=== PATIENT | male | born 1960 | race Caucasian/White ===

== ENCOUNTER 2018-08-08 23:06 | Emergency (ER) | payer BC, OTHER ==
[~2018-08-08] VITALS: Ht 175.3 cm; Wt 85.0 kg
[~2018-08-08 23:06] MED LIST: METF500T PO
[2018-08-08 23:10] VITALS: BP 138/88
--- NOTE | 2018-08-08 23:18 | NUR ---
PT TAKEN TO BED 11
--- NOTE | 2018-08-08 23:27 | NUR ---
PT TO ED WITH C/O L FINGER PAIN X 3 DAYS. PT REPORTS POSSIBLE SPIDER BITE. REDNESS AND SWELLING NOTED TO L#5 FINGER. PT HAS LIMITED ROM OF FINGER. CMS INTACT. PT PLACED INTO BED, PENDING MD CASTILLO.
[2018-08-08] MEDS ORDERED: SULFAMETH/TRIMETH DS 800/160MG 1 TAB PO ONE (23:35)
[2018-08-08 23:43] VITALS: BP 138/88
--- NOTE | 2018-08-08 23:44 | NUR ---
Patient discharged with v/s stable. Written and verbal after care instructions given and explained. Patient alert, oriented and verbalized understanding of instructions. Ambulatory with steady gait. All questions addressed prior to discharge. ID band removed. Patient advised to follow up with PMD. Rx of BACTRIM, MOTRIN given. Patient educated on indication of medication including possible reaction and side effects. Opportunity to ask questions provided and answered.
== END 2018-08-08 23:44 | disposition home or self-care (01) ==
LOC: MED 23:06
DX: L03.011 Cellulitis of right finger (principal); E11.9 Type 2 diabetes mellitus without complications; Z79.84 Long term (current) use of oral hypoglycemic drugs
CPT/HCPCS: 73140; 82948; 99283

== ENCOUNTER 2019-01-20 03:50 | Emergency (ER) | payer BC, MEDICAID ==
[~2019-01-20] VITALS: Ht 175.3 cm; Wt 84.4 kg
[2019-01-20 03:59] VITALS: BP 112/75
--- NOTE | 2019-01-20 04:08 | NUR ---
PT AMBULATED TO ER BED 2
--- NOTE | 2019-01-20 05:03 | NUR ---
C/O LT GROIN MASS AND GETTING BIGGER X 1 WK. WAS SEEN BY URGENT CARE PROVIDER WITH DX. INGUINAL HERNIA. HAD APPOINTMENT WITH PMD IN 2 WKS. TODAY PAIN INCREASED. PMH;DM. PT AAO X4, GCS 15, ABLE TO SPEAK WITH FULL COMPLETE SENETENCES. AMBULATOR WITH STEADY GAIT. RESPIRATIONS EVEN AND UNLABORED, BL LUNG CLEAR. SKIN WARM/PINK/DRY, +PMSC. ABDOMEN SOFT, NON DISTENDED, ACTIVE BOWEL SOOUND X 4. NOTED RT INGUINAL HERNIA, PAIN TO TOUCH. VSS, NO ACUTE DISTRESS AT THIS TIME. MADE AWARE OF PT STATUS. WILL CONTINUE TO MONITOR
--- NOTE | 2019-01-20 07:27 | NUR ---
Pt report given to PATTI BLACKMON. Transfer of care at this time.
--- NOTE | 2019-01-20 07:28 | NUR ---
RECEIVED REPORT FROM PATTI WILSON. PT IN STABLE CONDITION.
[2019-01-20 08:11] LABS: ANION GAP 12.4 (8-16); CARBON DIOXIDE 27.7 mmol/L (21-32); CREATININE 0.8 mg/dL (0.7-1.3); POTASSIUM 4.1 mmol/L (3.5-5.1)
[2019-01-20 08:13] LABS: BASOPHILS # (AUTO) 0.1 K/uL (0.00-0.22); BASOPHILS % (AUTO) 0.8 % (0.0-2.0); EOSINOPHILS % (AUTO) 0.6 % (0.0-4.0); HEMATOCRIT 43.7 % (36-52); LYMPHOCYTES # (AUTO) 1.4 K/uL (2.0-11.5); LYMPHOCYTES % (AUTO) 20.4 % (20.5-51.1); MEAN CORPUSCULAR HEMOGLOBIN 30 pg (27-31); MEAN CORPUSCULAR HGB CONC 34 g/dL (33-37); MEAN CORPUSCULAR VOLUME 87.4 fL (80-94); MONOCYTES # (AUTO) 0.7 K/uL (0.8-1.0); MONOCYTES % (AUTO) 10.7 % (1.7-9.3); NEUTROPHILS # (AUTO) 4.6 K/uL (1.8-7.7); NEUTROPHILS % (AUTO) 67.5 % (42.2-75.2); PLATELET COUNT (AUTO) 248 K/uL (140-450); WHITE BLOOD COUNT (AUTO) 6.8 K/uL (4.8-10.8)
[2019-01-20 08:18] LABS: ALBUMIN 3.1 g/dL (3.4-5.0); TOTAL BILIRUBIN 0.7 mg/dL (0.0-1.0)
--- NOTE | 2019-01-20 08:45 | NUR ---
PT TAKEN FOR CT SCAN.
--- NOTE | 2019-01-20 09:03 | NUR ---
PT BACK FROM CT SCAN.
--- NOTE | 2019-01-20 10:07 | NUR ---
PATIENT WANTS TO EAT. SIGNIFICANT OTHER BROUGHT HIM WANT, PT WANTS TO KNOW IF IT IS OKAY TO EAT. DR. DONNELLY STATES OK FOR PT TO EAT, NOTIFIED PT.
--- NOTE | 2019-01-20 11:20 | NUR ---
Patient discharged with v/s stable. Written and verbal after care instructions given and explained. Patient alert, oriented and verbalized understanding of instructions. Ambulatory with steady gait. All questions addressed prior to discharge. ID band removed. Patient advised to follow up with PMD. Rx of [place] and [place] given. Patient educated on indication of medication including possible reaction and side effects. Opportunity to ask questions provided and answered. Addendum: 01/20/19 at 1122 by ANNETTA 20G IV ON RIGHT AC (FROM MULTIPLE LAUNCH ROCKET SYSTEM CREWMEMBER RN) REMOVED. CANNULA INTACT.
[2019-01-20 11:21] VITALS: BP 129/90
== END 2019-01-20 11:20 | disposition home or self-care (01) ==
LOC: MED 03:50
DX: R19.00 Intra-abdominal and pelvic swelling, mass and lump, unspecified site (principal); E11.9 Type 2 diabetes mellitus without complications; Z79.84 Long term (current) use of oral hypoglycemic drugs
CPT/HCPCS: 36415; 74177; 80053; 83690; 85025; 99284; Q9967

== ENCOUNTER 2019-02-02 11:48 | Inpatient (IN) | payer MEDICAID, OTHER ==
[~2019-02-02] VITALS: Ht 175.3 cm; Wt 84.4 kg
[2019-02-02 11:55] VITALS: BP 125/72
--- NOTE | 2019-02-02 11:59 | NUR ---
PATIENT AMBULATED TO BED 4 AT THIS TIME.
--- NOTE | 2019-02-02 12:10 | NUR ---
PT C/O PALPABLE PAINFUL MASS TO RT SIDE OF GROIN X 1 MONTH. PT STATES THE DULL PAIN IS WORSE WITH MOVEMENT. SEEN BY PMD -- DX WITH POSSIBLE HERNIA. [id number] FIRM MASS PALPATED ON PT'S RIGHT GROIN AREA. PATIENT STATES PAIN OF 8/10 AT THIS TIME; VSS; PATIENT POSITIONED FOR COMFORT; HOB ELEVATED; BEDRAILS UP X1; BED DOWN. ER MD MADE AWARE OF PT STATUS.
[2019-02-02] MEDS ORDERED: NACL 0.9% 1,000 ML IV SCH (12:27)
[2019-02-02] MEDS ORDERED: KETOROLAC 30 MG/ML VIAL IVP ONE (12:30)
--- NOTE | 2019-02-02 12:45 | NUR ---
PARTS BACK COUNTER MAN IS AT BEDSIDE.
--- NOTE | 2019-02-02 12:53 | NUR ---
U/S TECH IS AT BEDSIDE.
[2019-02-02 13:01] LABS: APPEARANCE,URINE CLEAR (CLEAR); BILIRUBIN,URINE NEGATIVE (NEGATIVE); BLOOD, URINE NEGATIVE (NEGATIVE); COLOR,URINE YELLOW (YELLOW); LEUKOCYTE ESTERASE ,URINE NEGATIVE (NEGATIVE); NITRITE, URINE NEGATIVE (NEGATIVE); UGLUCOSE 3+ (NEGATIVE)
[2019-02-02 13:02] LABS: BASOPHILS # (AUTO) 0.1 K/uL (0.00-0.22); BASOPHILS % (AUTO) 0.7 % (0.0-2.0); EOSINOPHILS % (AUTO) 0.2 % (0.0-4.0); HEMATOCRIT 39.6 % (36-52); HEMOGLOBIN 13.4 g/dL (12.0-18.0); LYMPHOCYTES # (AUTO) 1.6 K/uL (2.0-11.5); LYMPHOCYTES % (AUTO) 15.7 % (20.5-51.1); MEAN CORPUSCULAR HEMOGLOBIN 30 pg (27-31); MEAN CORPUSCULAR HGB CONC 34 g/dL (33-37); MEAN CORPUSCULAR VOLUME 88.6 fL (80-94); MONOCYTES % (AUTO) 9.8 % (1.7-9.3); NEUTROPHILS # (AUTO) 7.4 K/uL (1.8-7.7); NEUTROPHILS % (AUTO) 73.6 % (42.2-75.2); PLATELET COUNT (AUTO) 300 K/uL (140-450); RED BLOOD CELL COUNT(AUTO) 4.47 MIL/uL (4.20-6.10); RED CELL DISTRIBUTION WIDTH 13.3 % (11.6-13.7); WHITE BLOOD COUNT (AUTO) 10.1 K/uL (4.8-10.8)
[2019-02-02 13:10] LABS: ANION GAP 10.9 (8-16); CARBON DIOXIDE 28.5 mmol/L (21-32); POTASSIUM 4.4 mmol/L (3.5-5.1)
[2019-02-02 13:14] LABS: RBC,URINE 0 /HPF (0-5)
[2019-02-02 13:14] LABS: PROTHROMBIN TIME 9.7 secs (10.8-13.4)
[2019-02-02 13:15] LABS: WBC,URINE 0 /HPF (0-5)
[2019-02-02 13:16] LABS: ALBUMIN 2.8 g/dL (3.4-5.0); TOTAL BILIRUBIN 0.6 mg/dL (0.0-1.0)
--- NOTE | 2019-02-02 13:40 | NUR ---
PT IS RESTING IN BED WITH EYES CLOSED.
[2019-02-02] MEDS ORDERED: VANCOMYCIN 1,000 MG in DEXTROSE 5% 250 ML IV ONE (14:30)
--- NOTE | 2019-02-02 14:30 | NUR ---
PT IS SLEEPING IN BED WITH VSS.
[2019-02-02] MEDS ORDERED: VANCOMYCIN 1,000 MG VIAL ONE (14:54)
[2019-02-02] MEDS: DEXT 5% / NACL 0.45% 1,000 ML IV SCH (15:15)
[2019-02-02] MEDS ORDERED: BISACODYL 10 MG SUPP RC PRN (15:20)
[2019-02-02] MEDS ORDERED: diphenhydrAMINE 50 MG/ML VIAL IVP PRN (15:20)
[2019-02-02] MEDS ORDERED: MAGNESIUM OXIDE 400 MG TAB PO PRN (15:20)
[2019-02-02] MEDS ORDERED: HYDROcodone/APAP 5/325 MG 1 TAB TAB PO PRN ×2 (15:20)
[2019-02-02] MEDS ORDERED: ACETAMINOPHEN 650 MG SUPP RC PRN (15:20)
[2019-02-02] MEDS ORDERED: ZOLPIDEM 5 MG TAB PO PRN (15:20)
[2019-02-02] MEDS ORDERED: ALUMINUM HYD/MAG/SIMETHICONE 30 ML UDC PO PRN (15:20)
[2019-02-02] MEDS ORDERED: POTASSIUM CHLORIDE 10 MEQ TABER PO PRN (15:20)
[2019-02-02] MEDS ORDERED: guaiFENesin DM 200/20 MG-10 ML 10 ML UDC PO PRN (15:20)
[2019-02-02] MEDS ORDERED: MORPHINE SULFATE 2 MG/ML SYR IVP PRN (15:20)
[2019-02-02] MEDS ORDERED: cloNIDine 0.1 MG TAB PO PRN (15:20)
[2019-02-02] MEDS ORDERED: ONDANSETRON 4 MG/2 ML VIAL IVP PRN (15:20)
[2019-02-02] MEDS ORDERED: MAG SULF 2000 MG/WATER PREMIX 50 ML IV PRN (15:20)
[2019-02-02] MEDS ORDERED: SODIUM PHOSPHATE 118 ML ENEM RC PRN (15:20)
[2019-02-02] MEDS ORDERED: DOCUSATE SODIUM 250 MG GELCAP PO PRN (15:20)
[2019-02-02] MEDS ORDERED: DEXTROSE 50% 50 ML SYR IVP PRN (15:25)
--- NOTE | 2019-02-02 15:41 | NUR ---
PT IS SLEEPING IN BED WITH VSS.
[2019-02-02] MEDS: BLOOD GLUCOSE MONITORING 1 DEV DEV FS SCH ×2 (16:30→21:46)
--- NOTE | 2019-02-02 16:50 | NUR ---
Patient will be admitted to care of possible incarcerated hernia. Admited to med-surg. Will go to room 111A. Belongings list completed. Report to PATTI Cotter.
--- NOTE | 2019-02-02 16:50 | NUR ---
PT ARRIVED ON THE UNIT. PT APPEARS STABLE AND IN NO APPARENT DISTRESS. PT VITALS ARE WITHIN NORMAL LIMITS 102/64 99% SPO2 ON ROOM AIR. HEART RATE 75 RESPIRATIONS 18 IV SITE RIGHT AC 20G INFUSING WITH NO SIGNS OF INFILTRATION OR INFLAMMATION.
[2019-02-02] MEDS: INSULIN LISPRO SLIDING SCALE 100 UNITS/ML VIAL SUBQ PRN ×2 (17:47→21:47)
--- NOTE | 2019-02-02 17:48 | NUR ---
FINGERSTICK GLUCOSE 237 ADMINISTERED 4 UNITS HUMALOG. PER SLIDING SCALE
--- NOTE | 2019-02-02 19:30 | NUR ---
ENDORSED PT TO PM RN PT APPEARS STABLE AND IN NO APPARENT DISTRESS. IVF INFUSING IV SITE PATENT WITH NO SIGNS OF INFILTRATION OR INFLAMMATION. ALL SAFETY MEASURES ARE IN PLACE
--- NOTE | 2019-02-02 19:31 | NUR ---
Received endorsement from AM shift RN; patient A/Ox4, able to make needs known, ambulatory. Patient resting comfortably, introduced self, updated board. No SOB or distress noted, on room air. IV site noted on right antecubital, 20 gauge, running IVF, asymptomatic. Skin intact. Bed in the lowest position, call light within reach. Initial assessment done. Will continue to monitor.
--- NOTE | 2019-02-02 21:40 | NUR ---
Due meds given, tolerated well.
--- NOTE | 2019-02-02 23:41 | NUR ---
Vitals taken, no distress noted.
[2019-02-03] VITALS: BP 146/88
[2019-02-03] MEDS: DEXT 5% / NACL 0.45% 1,000 ML IV SCH ×3 (00:29→21:15)
--- NOTE | 2019-02-03 02:10 | NUR ---
Checks made; patient resting comfortably, visible chest rise and fall noted.
--- NOTE | 2019-02-03 04:35 | NUR ---
Rounds done; patient asleep, eyes closed, visible chest rise and fall noted.
--- NOTE | 2019-02-03 05:42 | NUR ---
Patient signed consent for Percutaneous needle biopsy.
[2019-02-03] MEDS: BLOOD GLUCOSE MONITORING 1 DEV DEV FS SCH ×4 (05:46→21:22)
[2019-02-03] MEDS: INSULIN LISPRO SLIDING SCALE 100 UNITS/ML VIAL SUBQ PRN ×4 (05:46→21:26)
--- NOTE | 2019-02-03 06:02 | NUR ---
Vitals stable, due meds given. Will endorse to AM shift RN for continuity of care.
--- NOTE | 2019-02-03 07:15 | NUR ---
RECEIVED REPORT FROM UI LEAD DEVELOPER NURSE. PATIENT IS ASLEEP, RESPIRATION EVEN AND UNLABORED. NO ACUTE DISTRESS NOTED.
[2019-02-03 08:00] VITALS: BP 139/90
--- NOTE | 2019-02-03 08:28 | NUR ---
PATIENT HAS BEEN SCREENED AND CATEGORIZED MODERATE NUTRITION RISK. PATIENT WILL BE SEEN WITHIN 3-5 DAYS OF ADMISSION. 02/05/19-02/07/[address]
--- NOTE | 2019-02-03 09:54 | NUR ---
PER RADIOLOGY US/CT GUIDED BIOPSY WONT BE DONE UNTIL TUESDAY UNLESS ORDERED STAT AND APPROVED BY RESEARCH PHYSICIAN, DR SHERMAN CALLED TO CLARIFY ORDER, KEEP IT ROUTINE, OK TO WAIT UNTIL TUESDAY. PT OK TO EAT FOR NOW PER DR SHERMAN.
--- NOTE | 2019-02-03 10:40 | NUR ---
PT NOW SLEEPING QUIETLY, APPEARS IN NO ACUTE DISTRESS.
--- NOTE | 2019-02-03 12:45 | NUR ---
DR LOCKETT AT BEDSIDE
--- NOTE | 2019-02-03 13:02 | NUR ---
IV CONTRAST CONSENT SIGNED BY PT.
--- NOTE | 2019-02-03 13:25 | NUR ---
PT SLEEPING QUIETLY, APPEARS IN NO ACUTE DISTRESS, IVF INFUSING WELL, SITE WNL.
--- NOTE | 2019-02-03 14:44 | NUR ---
PT TAKEN TO CT IN WHEELCHAIR AT THIS TIME.
[2019-02-03 16:00] VITALS: BP 118/80
--- NOTE | 2019-02-03 19:20 | NUR ---
REPORT GIVEN TO SQL DBA NURSE. PATIENT IS IN STABLE CONDITION.
--- NOTE | 2019-02-03 19:22 | NUR ---
RECEIVED PT IN STABLE CONDITION FROM AM NURSE. AWAKE,ALERT AND ORIENTED X4. MED SURG. WITH NO C/O ANY DISCOMFORT OR PAIN NOTED. HAS IVF INFUSING WELL ON THE RT AC G#20. CLEAR AND PATENT. PLAN OF CARE DISCUSSED AND VERBALIZED UNDERSTANDING. BED ON LOWEST POSITION. CALL LIGHT AND URINAL WITHIN EASY REACH. WILL CONTINUE TO MONITOR.
--- NOTE | 2019-02-03 21:00 | NUR ---
MADE ROUNDS. PT ASLEEP. NO S/S. OF ANY DISCOMFORT/PAIN. WILL CONTINUE TO MONITOR.
[2019-02-04 00:55] VITALS: BP 117/77
--- NOTE | 2019-02-04 01:00 | NUR ---
PT AWAKE. WATER PROVIDED. NO C/O ANY PAIN NOTED. WILL CONTINUE TO MONITOR.
--- NOTE | 2019-02-04 03:00 | NUR ---
PT IS ASLEEP. NO S/SOF ANY DISCOMFORT NOR PAIN NOTED.
[2019-02-04] MEDS: DEXT 5% / NACL 0.45% 1,000 ML IV SCH ×3 (04:30→17:15)
[2019-02-04] MEDS: BLOOD GLUCOSE MONITORING 1 DEV DEV FS SCH ×4 (05:45→21:10)
[2019-02-04] MEDS: INSULIN LISPRO SLIDING SCALE 100 UNITS/ML VIAL SUBQ PRN ×4 (05:47→21:17)
--- NOTE | 2019-02-04 05:47 | NUR ---
BLOOD SUGAR THIS AM WAS CHECKED RESULT 240. INSULIN COVERAGE GIVEN SUBQ.
--- NOTE | 2019-02-04 07:25 | NUR ---
ENDORSED PT IN STABLE CONDITION TO AM NURSE.
--- NOTE | 2019-02-04 07:28 | NUR ---
REPORT RECEIVED FROM NEW ACCOUNT INTERVIEWER NURSE, PT SLEEPING QUIETLY, NO C/O PAIN, RESP EVEN UNLABORED, POC REVIEWED, NO IMMEDIATE NEEDS AT THIS THIS TIME, WILL CONTINUE TO MONITOR
[2019-02-04 08:00] VITALS: BP 118/82
--- NOTE | 2019-02-04 09:20 | NUR ---
PT UP TO TAKE A SHOWER, IV SITE WRAPPED, PT UP AMBULATES WITH STEADY GAIT.
--- NOTE | 2019-02-04 10:33 | NUR ---
PT SITTING UP WATCHING TV, TV VOLUME CONTROL FIXED, APPEARS IN NO ACUTE DISTRESS.
--- NOTE | 2019-02-04 12:05 | NUR ---
SHELL MOLDER AT BEDSIDE DRAWING BLOOD
[2019-02-04 12:15] LABS: HEMATOCRIT 38.1 % (36-52); HEMOGLOBIN 12.9 g/dL (12.0-18.0); MEAN CORPUSCULAR HEMOGLOBIN 30 pg (27-31); MEAN CORPUSCULAR HGB CONC 34 g/dL (33-37); MEAN CORPUSCULAR VOLUME 87.4 fL (80-94); PLATELET COUNT (AUTO) 293 K/uL (140-450); RED BLOOD CELL COUNT(AUTO) 4.36 MIL/uL (4.20-6.10); RED CELL DISTRIBUTION WIDTH 12.9 % (11.6-13.7); WHITE BLOOD COUNT (AUTO) 7.7 K/uL (4.8-10.8)
[2019-02-04 12:38] LABS: ANION GAP 10.4 (8-16); CARBON DIOXIDE 28.4 mmol/L (21-32); CREATININE 0.9 mg/dL (0.7-1.3); POTASSIUM 3.8 mmol/L (3.5-5.1)
[2019-02-04 12:46] LABS: PHOSPHORUS 3.6 mg/dL (2.5-4.9)
[2019-02-04 12:59] LABS: BASOPHILS % (MANUAL) 0 % (0-2); EOSINOPHILS % (MANUAL) 0 % (0-4); LYMPHOCYTES % (MANUAL) 15 % (20-46); MONOCYTES % (MANUAL) 11 % (5-12)
[2019-02-04 16:00] VITALS: BP 120/79
--- NOTE | 2019-02-04 17:06 | NUR ---
PT'S SISTER SELVIN ALLRED AT BEDSIDE, , NEXT OF KIN INFORMATION UPDATED WITH ADMITTING, PT ALSO REQUESTING INFORMATION REGARDING PATIENT PORTAL ACCESS, ADMITTING ASKED TO GIVE INFORMATION TO PATIENT.
--- NOTE | 2019-02-04 17:08 | NUR ---
TEMP 98.6 AFTER TYLENOL
[2019-02-04] MEDS: LORazepam 2 MG/ML VIAL IVP PRN (17:22)
--- NOTE | 2019-02-04 17:35 | NUR ---
PT C/O FEELING ANXIOUS AND RESTLESS, PT AND SISTER STATES HE IS NOT USED TO SITTING IN ONE PLACE FOR LONG TIME, PRN ATIVAN GIVEN AT THIS TIME. Addendum: 02/04/19 at 1738 by Libra Mantilla RN PT WORRIED ABOUT NEEDLE BIOPSY TOMORROW
--- NOTE | 2019-02-04 18:04 | NUR ---
PT STATES HE FEELS MORE CALM NOW, SITTING UP EATING DINNER AT THIS TIME
--- NOTE | 2019-02-04 19:28 | NUR ---
REPORT GIVEN TO AGRICULTURAL RESEARCHER NURSE, PT SLEEPING COMFORTABLY IN NO ACUTE DISTRESS.
--- NOTE | 2019-02-04 19:28 | NUR ---
RECIEVED PT . AAOX4 , RESTING COMFORTABLY ON BED , WITH BERABLE PAIN HE SAID AT THIS TIME . IV SITE INTACT AND PATENT. ON SAFETY PRECAUTION PROTOCOL . PLAN OF CARE DISCUSSED AND VERBALIZE UNDERSTANDING . CALL SANDRA GARCIA IN REACH , WILL CONT. TO MONITOR.
--- NOTE | 2019-02-04 22:00 | NUR ---
CLARISA ARANDA , NO COMPLAIN MADE AT THIS TIME. Addendum: 02/05/19 at 0156 by Sadie Pham RN IVF FOUND DISCONNECTED , ON IV PUMP STANDBY MODE ,- RE CONNECT IVF.
[2019-02-05] VITALS: BP 124/72
--- NOTE | 2019-02-05 01:00 | NUR ---
MADE ROUNDS , PT. SAID " DO U GIVE ME THE MEDICINE WHICH GIVING EVERY FOUR HOURS?"- I ASK PT ARE U IN [place] HE SAID NO , PT APPERS CALM ON BED , NO SIGNS OF AGITATION NOTED.WILL CONT. TO MONITOR.
[2019-02-05] MEDS: LORazepam 2 MG/ML VIAL IVP PRN ×3 (01:41→14:25)
[2019-02-05] MEDS: ACETAMINOPHEN 325 MG TAB PO PRN ×2 (01:46→17:53)
--- NOTE | 2019-02-05 02:20 | NUR ---
BRING SANDWICH FOR THE PT - BUT PT SLEEPING SOUNDLY - ATIVAN TIV JUST GIVEN.
[2019-02-05] MEDS: DEXT 5% / NACL 0.45% 1,000 ML IV SCH ×2 (03:15→13:15)
[2019-02-05] MEDS: BLOOD GLUCOSE MONITORING 1 DEV DEV FS SCH ×4 (06:01→21:04)
[2019-02-05] MEDS: INSULIN LISPRO SLIDING SCALE 100 UNITS/ML VIAL SUBQ PRN ×3 (06:08→21:17)
--- NOTE | 2019-02-05 07:15 | NUR ---
RECEIVED REPORT FROM INSPECTOR HOT FORGINGS NURSE JAMSHID FOR CONTINUITY OF CARE. PT IN STABLE CONDITION. RESPIRATIONS EVEN AND UNLABORED. IV INTACT AND PATENT. SAFETY MEASURES IN PLACE. BED IN LOW POSITION. CALL LIGHT AT BEDSIDE. WILL CONTINUE TO MONITOR.
[2019-02-05 07:44] LABS: HEMATOCRIT 39.2 % (36-52); HEMOGLOBIN 13.5 g/dL (12.0-18.0); MEAN CORPUSCULAR HEMOGLOBIN 30 pg (27-31); MEAN CORPUSCULAR HGB CONC 34 g/dL (33-37); MEAN CORPUSCULAR VOLUME 87.6 fL (80-94); PLATELET COUNT (AUTO) 306 K/uL (140-450); RED BLOOD CELL COUNT(AUTO) 4.48 MIL/uL (4.20-6.10); RED CELL DISTRIBUTION WIDTH 13.1 % (11.6-13.7); WHITE BLOOD COUNT (AUTO) 6.9 K/uL (4.8-10.8)
[2019-02-05 08:00] VITALS: BP 119/79
[2019-02-05 08:35] LABS: POTASSIUM 3.6 mmol/L (3.5-5.1)
[2019-02-05 08:36] LABS: ANION GAP 13.2 (8-16); CARBON DIOXIDE 27.4 mmol/L (21-32); CREATININE 0.9 mg/dL (0.7-1.3)
[2019-02-05 08:39] LABS: MAGNESIUM 2.1 mg/dL (1.8-2.4); PHOSPHORUS 3.3 mg/dL (2.5-4.9)
[2019-02-05] MEDS ORDERED: MUPIROCIN CA NASAL 2% 1GM TUBE NS SCH (09:00)
[2019-02-05 09:38] LABS: LYMPHOCYTES % (MANUAL) 20 % (20-46); MONOCYTES % (MANUAL) 11 % (5-12)
[2019-02-05] MEDS: MUPIROCIN CA NASAL 2% 1GM TUBE NS SCH (09:54)
--- NOTE | 2019-02-05 10:07 | NUR ---
GAVE PRN ANXIETY MEDICATION PER PT REQUEST. PT TOLERATED WELL. WILL CONTINUE TO MONITOR.
--- NOTE | 2019-02-05 14:15 | NUR ---
SPOKE WITH NIRAV VELASCO FOR FURTHER GUIDANCE ON PT BIOPSY. RADIOLOGY PERCUTANEOUS NEEDLE BIOPSY OF RIGHT GROIN MASS, ULTRASOUND GUIDED, STAT.
--- NOTE | 2019-02-05 14:25 | NUR ---
SPOKE WITH HAZARDOUS WASTE MANAGEMENT SPECIALIST (MAXIE) WHO WILL CALL TO [facility] TO SEE IF PROCEDURE COULD BE COMPLETED TODAY. [address] [facility] INFORMED MAXIE RADIOLOGY THAT PROCEDURE WILL BE DONE ON 12/07/18. Addendum: 02/05/19 at 1620 by Lashell Conklin RN NIRAV VELASCO IS AWARE.
[2019-02-05 16:00] VITALS: BP 119/85
--- NOTE | 2019-02-05 16:53 | NUR ---
PT WALKING AROUND UNIT WITH FAMILY. PT WAS TOLD WHEN ATTEMPTING TO GO IN SHOWER THAT IT WAS NOT A RESTROOM, PT KICKED THE AIR AND ATTEMPTED TO SLAM DOOR. PT CALMED DOWN AFTER TWO LAPS AROUND THE UNIT.
--- NOTE | 2019-02-05 17:53 | NUR ---
GAVE PRN ACETAMINOPHEN DUE TO TEMPERATURE 102.8. WILL CONTINUE TO MONITOR
--- NOTE | 2019-02-05 18:50 | NUR ---
TEMPERATURE IN NORMAL RANGE. 98.8 PT IN STABLE CONDITION.
--- NOTE | 2019-02-05 19:20 | NUR ---
GAVE REPORT TO VESSEL LINER NURSE FOR CONTINUITY OF CARE. PT IN STABLE CONDITION.
--- NOTE | 2019-02-05 19:29 | NUR ---
REPORT RECEIVED FROM AM NURSE AT BEDSIDE. PT IN STABLE CONDITION. AAOX4. INTRODUCED SELF TO PT. BOARD UPDATED. NO COMPLAINTS OF PAIN. NO SOB. AFEBRILE. PT IS AMBULATORY. PT CURRENTLY HAS NO IV SITE DUE TO HIM PULLING IT OUT BEFORE SHIFT CHANGE. WILL INSERT NEW IV. SKIN WARM, DRY, AND INTACT WITH NO OPEN WOUNDS. BED LOCKED IN LOW POSITION. CALL SAAB WITHIN REACH. SAFETY PRECAUTION IN PLACE. ALL NEEDS MET AT THIS TIME.
--- NOTE | 2019-02-05 21:04 | NUR ---
BS 280. 6 UNITS OF HUMALOG GIVEN. PT TOLERATED WELL. IV WAS PULLED OUT BY PATIENT DURING AM SHIFT. CANNULA INTACT. NEW IV INSERTED L FA 22G. 1 ATTEMPT.
--- NOTE | 2019-02-05 22:55 | NUR ---
PT ON CCHO 60 DIET AND BS HAVE BEEN INCREASED. PT ON D5 1/2NS@100ML/HR. NOTIFIED . ORDERED PT TO BE ON 1/2NS@100ML/HR. TORB
[2019-02-05] MEDS: NACL 0.45% 1,000 ML IV SCH (23:10)
[2019-02-06] VITALS: BP 105/57
--- NOTE | 2019-02-06 00:10 | NUR ---
PT SLEEPING COMFORTABLY BUT AROUSABLE. NO S/S OF DISTRESS NOTED. WILL CONTINUE TO MONITOR.
--- NOTE | 2019-02-06 02:00 | NUR ---
PT SLEEPING COMFORTABLY BUT AROUSABLE. NO S/S OF DISTRESS NOTED. RESPIRATIONS EVEN, UNLABORED, AND WNL. WILL CONTINUE TO MONITOR.
--- NOTE | 2019-02-06 03:35 | NUR ---
PT SLEEPING COMFORTABLY BUT AROUSABLE. NO S/S OF DISTRESS NOTED. NO COMPLAINTS OF PAIN. NO SOB. AFEBRILE. WILL CONTINUE TO MONITOR.
--- NOTE | 2019-02-06 05:05 | NUR ---
PT SLEEPING COMFORTABLY BUT AROUSABLE. NO S/S OF DISTRESS NOTED. RESPIRATIONS EVEN, UNLABORED, AND WNL. WILL CONTINUE TO MONITOR.
[2019-02-06] MEDS: BLOOD GLUCOSE MONITORING 1 DEV DEV FS SCH ×2 (05:29→11:44)
--- NOTE | 2019-02-06 05:29 | NUR ---
BS 202. 4 UNITS OF HUMALOG GIVEN.
[2019-02-06] MEDS: INSULIN LISPRO SLIDING SCALE 100 UNITS/ML VIAL SUBQ PRN ×2 (05:32→12:45)
--- NOTE | 2019-02-06 06:10 | NUR ---
PT SLEEPING COMFORTABLY BUT AROUSABLE. NO S/S OF DISTRESS NOTED. PT IN STABLE CONDITION.
[2019-02-06 06:23] LABS: AFP (TUMOR MARKER) 2.2 ng/mL (0.0-8.3)
--- NOTE | 2019-02-06 07:10 | NUR ---
RECEIVED BEDSIDE REPORT FROM HAND SLITTER NURSE. PATIENT IS AWAKE, ALERT AND ORIENTEDX4. NO SIGNS OF DISTRESS ON RA. SKIN IS INTACT. IV ON L FA 22G INFUSING 1/2NS AT 100. CLEAN,DRY AND INTACT. MED SURGE PATIENT. AMBULATORY. CONTINENT. ABLE TO MAKE NEEDS KNOWN. CONTACT PRECAUTIONS FOR MRSA NARES. BED IN LOW POSITION. CALL LIGHT WITHIN REACH. WILL CONTINUE TO MONITOR THE PATIENT.
[2019-02-06 08:00] VITALS: BP 119/82
[2019-02-06 08:19] LABS: MAGNESIUM 1.9 mg/dL (1.8-2.4); PHOSPHORUS 3.1 mg/dL (2.5-4.9)
[2019-02-06 08:20] LABS: ANION GAP 10.8 (8-16); BASOPHILS # (AUTO) 0.1 K/uL (0.00-0.22); BASOPHILS % (AUTO) 0.9 % (0.0-2.0); CARBON DIOXIDE 24.6 mmol/L (21-32); CREATININE 0.9 mg/dL (0.7-1.3); EOSINOPHILS # (AUTO) 0.1 K/uL (0-0.4); EOSINOPHILS % (AUTO) 0.6 % (0.0-4.0); HEMATOCRIT 36.9 % (36-52); HEMOGLOBIN 12.5 g/dL (12.0-18.0); LYMPHOCYTES # (AUTO) 1.5 K/uL (2.0-11.5); LYMPHOCYTES % (AUTO) 16.6 % (20.5-51.1); MEAN CORPUSCULAR HEMOGLOBIN 30 pg (27-31); MEAN CORPUSCULAR HGB CONC 34 g/dL (33-37); MEAN CORPUSCULAR VOLUME 87.3 fL (80-94); MONOCYTES # (AUTO) 0.8 K/uL (0.8-1.0); MONOCYTES % (AUTO) 9.6 % (1.7-9.3); NEUTROPHILS # (AUTO) 6.4 K/uL (1.8-7.7); NEUTROPHILS % (AUTO) 72.3 % (42.2-75.2); PLATELET COUNT (AUTO) 317 K/uL (140-450); POTASSIUM 3.4 mmol/L (3.5-5.1); RED BLOOD CELL COUNT(AUTO) 4.22 MIL/uL (4.20-6.10); RED CELL DISTRIBUTION WIDTH 13.1 % (11.6-13.7); WHITE BLOOD COUNT (AUTO) 8.8 K/uL (4.8-10.8)
--- NOTE | 2019-02-06 09:13 | NUR ---
ULTRASOUND GUIDED NEEDLE BIOPSY OF R GROIN MASS STARTED. CONSENT AND TIME OUT CONFIRMED AND DONE.
[2019-02-06] MEDS: MUPIROCIN CA NASAL 2% 1GM TUBE NS SCH (10:54)
[2019-02-06] MEDS: NACL 0.45% 1,000 ML IV SCH (10:54)
[2019-02-06 11:14] LABS: RAPID PLASMA REAGIN NON-REACTIVE (Non Reactiv)
[2019-02-06] MEDS: LORazepam 2 MG/ML VIAL IVP PRN (11:22)
--- NOTE | 2019-02-06 11:25 | NUR ---
PATIENT IS ANXIOUS. HE IS STATING WE DONT FEED HIM. PATIENT WAS GIVEN A TRAY BUT PROCEDURE WAS BEING DONE. PATIENT ANXIOUS AND UPSET THAT THE BIOPSY WAS SUPPOSE TO BE DONE ON TUESDAY AND IT WAS DELAYED AND DONE TODAY.
[2019-02-06] MEDS ORDERED: ACET-9525 PO (11:36)
--- NOTE | 2019-02-06 12:46 | NUR ---
ADMINISTERED 10 UNITS HUMALOG FOR BS OF 368. PATIENT TOLERATED WELL. EDUCATED ON SIDE EFFECTS. PATIENT REFUSED PNA AND FLU VACCINE AT THIS TIME. HE SAID HE GOT REALLY SICK BEFORE. EDUCATED ON RISKS. EDUCATED PATIENT ON DISEASE PROCESS, ABN S/SX, WHEN TO GO TO THE ER, EDUCATED ON MEDS AND GAVE PRESCRIPTIONS, EDUCATED ON FOLLOW UP W PCP IN 1-2 WEEKS FOR PATHO RESULTS FROM BIOPSY. TOLD PATIENT THEY MAY GO TO [facility]DS TO RELEASE INFORMATION TO PCP OR AT PCP THEY CAN SIGN PAPERWORKS. IV REMOVED, TIP INTACT. PATIENT CHANGING AND CALLING HIS RIDE. SIGNED ALL PAPERWORK.
--- NOTE | 2019-02-06 13:45 | NUR ---
FAMILY HERE TO BUCKLE GLUER THE PATIENT. PATIENT LEFT WALKING TO GO HOME IN STABLE CONDITION. ID BANDS REMOVED
--- NOTE | 2019-02-07 16:24 | NUR ---
CONTACTED PATIENT'S PCP DR. RUT CHUNG'S OFFICE AT [phone], ABLE TO SPEAK TO ALHAJI REGARDING POST DC APPOINTMENT. SHE PROVIDE ME WITH FEB 14, 2019 AT 0930 AM. CONTACTED PATIENT AT [phone], NO ANSWER. LEFT MESSAGE.
[2019-02-10 10:05] LABS: LD1 FRACTION 25 % (17-32); LD2 FRACTION 33 % (25-40); LD3 FRACTION 22 % (17-27); LD4 FRACTION 10 % (5-13); LD5 FRACTION 10 % (4-20)
[2019-02-10 19:07] LABS: LACTATE DEHYDROGENASE 231 IU/L (121-224)
== END 2019-02-06 13:45 | disposition home or self-care (01) | DRG 229 ==
LOC: MED 11:48 → MMU 15:16 → MTU 18:45
PROVIDERS: ADMIT Internal Medicine Pulmonary Disease; ATTEND Internal Medicine Pulmonary Disease
PROC: 0YB53ZX Excision of Right Inguinal Region, Percutaneous Approach, Diagnostic (ICD-10-PCS; principal; 2019-02-06)
DX: R19.09 Other intra-abdominal and pelvic swelling, mass and lump (principal); E44.1 Mild protein-calorie malnutrition; E87.1 Hypo-osmolality and hyponatremia; E11.9 Type 2 diabetes mellitus without complications; R59.0 Localized enlarged lymph nodes; Z90.49 Acquired absence of other specified parts of digestive tract; Z68.27 Body mass index [BMI] 27.0-27.9, adult
CPT/HCPCS: 36415; 76856; 76942; 80048; 80053; 81001; 82105; 82948; 83605; 83625; 83735; 84100; 85025; 85610; 85730; 86592; 87040; 87081; 88305; 88313; 88342; 96361; 96365; 96375; 99285; J1885; J2060; J3370; J7060; Q0092; Q9967